=== PATIENT | female | born 1995 | race Hispanic/Latino ===

== ENCOUNTER 2017-05-01 18:14 | Emergency (ER) | payer MEDICAID, SELFPAY | END 2017-05-01 19:47 | disposition home or self-care (01) | LOC: ERS 18:14 | DX: K22.8 Other specified diseases of esophagus (principal); K20.9 Esophagitis, unspecified; E66.9 Obesity, unspecified; F41.9 Anxiety disorder, unspecified; F90.9 Attention-deficit hyperactivity disorder, unspecified type; G47.00 Insomnia, unspecified | CPT/HCPCS: 99283 ==

== ENCOUNTER 2017-05-27 21:31 | Emergency (ER) | payer SELFPAY ==
[2017-05-27] MEDS ORDERED: Dexamethasone 4 mg/ml Vial ONE (22:17)
[2017-05-27] MEDS ORDERED: Acetaminophen 500 MG TAB ONE (22:17)
== END 2017-05-27 23:23 | disposition home or self-care (01) ==
LOC: ERS 21:31
DX: B34.9 Viral infection, unspecified (principal); E66.9 Obesity, unspecified; F41.9 Anxiety disorder, unspecified; F32.9 Major depressive disorder, single episode, unspecified
CPT/HCPCS: 87081; 87430; 99283; J1100

== ENCOUNTER 2019-01-05 09:15 | Emergency (ER) | payer MEDICAID, SELFPAY | END 2019-01-05 10:43 | disposition home or self-care (01) | LOC: ERS 09:15 | DX: O99.511 Diseases of the respiratory system complicating pregnancy, first trimester (principal); J30.9 Allergic rhinitis, unspecified; O99.89 Other specified diseases and conditions complicating pregnancy, childbirth and the puerperium; H10.10 Acute atopic conjunctivitis, unspecified eye; O99.341 Other mental disorders complicating pregnancy, first trimester; F41.9 Anxiety disorder, unspecified; F90.9 Attention-deficit hyperactivity disorder, unspecified type; O99.351 Diseases of the nervous system complicating pregnancy, first trimester; G47.00 Insomnia, unspecified; O99.211 Obesity complicating pregnancy, first trimester; Z3A.01 Less than 8 weeks gestation of pregnancy | CPT/HCPCS: 87804; 99283 ==